=== PATIENT | female | born 2000 | race Two or more races ===

== ENCOUNTER 2020-06-14 15:46 | Emergency (ER) | payer SELFPAY ==
[~2020-06-14] VITALS: Ht 162.6 cm; Wt 54.5 kg
[2020-06-14 15:58] VITALS: BP 128/82
== END 2020-06-14 16:37 | disposition home or self-care (01) ==
LOC: ER 15:46
DX: S89.92XA Unspecified injury of left lower leg, initial encounter (principal); W22.8XXA Striking against or struck by other objects, initial encounter; Y93.89 Activity, other specified; Y92.89 Other specified places as the place of occurrence of the external cause; Y99.8 Other external cause status
CPT/HCPCS: 73590; 99283

== ENCOUNTER 2020-11-14 22:44 | Emergency (ER) | payer SELFPAY ==
[~2020-11-14] VITALS: Ht 149.9 cm; Wt 54.7 kg
--- NOTE | 2020-11-14 23:52 | PHYS DOC ---
Past History Past Medical History: Asthma Past Surgical History: No Surgical History Alcohol Use: None General Adult HPI: HPI: ".. I feel terrible.. I think I got covid.. .. I keep forgeting to get my shot... " " " I have been around other people with COVID.." Patient is a 20 year old female who presents with above hx and complaints of fever, malaise, arthralgia, myalgia, cephalgia, pharyngitis and nonproductive cough. Patient has not completed COVID vaccination. No recent travel outside the [place] area. No specific ill contacts. No history immunosuppression. Patient has not gotten flu vaccination this season. Patient did take some ibuprofen at home earlier today but still has myalgia arthralgia and cephalgia. No history of trauma. No history of nausea or vomiting or diarrhea. Patient does not normally follow with primary care. Patient does have past history of reactive airway disease and asthma. Review of Systems: Review of Systems: Constitutional: Complains of fever or chills Eyes: Denies change in visual acuity HENT: Complains of nasal congestion and sore throat Respiratory: Complains of nonproductive cough Cardiovascular: Denies chest pain or edema GI: Denies abdominal pain, nausea, vomiting, bloody stools or diarrhea : Denies dysuria Musculoskeletal: Complains of generalized myalgia, arthralgia, Integument: Denies rash Neurologic: Complains of headache,. Denies focal weakness or sensory changes Endocrine: Denies polyuria or polydipsia Lymphatic: Denies swollen glands Psychiatric: Denies depression or anxiety Family History: Family History: Noncontributory to presentation Current Medications: Current Meds: See nursing for home meds Allergies: Allergies: Allergies Coded Allergies Type Severity Reaction Last Updated Verified Penicillins Allergy Unknown 06/14/20 Yes Physical Exam: PE: Constitutional: Well developed, well nourished, moderate acute distress, non- toxic appearance. [] HENT: Normocephalic, atraumatic, bilateral external ears normal, oropharynx moist, postnasal drainage and mild erythema, no oral exudates, nose swollen turbinates clear rhinorrhea Eyes: PERRLA, EOMI, conjunctiva normal, no discharge. [] Neck: Normal range of motion, no tenderness, supple, no stridor. [] Cardiovascular: Tachycardia heart rate regular rhythm, no murmur [] Lungs & Thorax: Bilateral breath sounds equal apex with few scattered wheezes auscultation [] Abdomen: Bowel sounds normal, soft, no tenderness, no masses, no pulsatile masses. [] Skin: Warm, dry, no erythema, no rash. [] Back: No tenderness, no CVA tenderness. [] Extremities: No tenderness on palpation, the patient complains of generalized arthralgia and myalgia, no cyanosis, no clubbing, ROM intact, no edema. No cording appreciated Neurologic: Alert and oriented X 3, normal motor function, normal sensory function, no focal deficits noted. [] Psychologic: Affect anxious, judgement normal, mood at times tearful over her malaise complaints. Current Patient Data: Labs: Labs =not crossing over-significant lab strep negative flu negative Covid positive EKG: EKG: [] Radiology/Procedures: Radiology/Procedures: [] Heart Score: C/O Chest Pain: N/A Risk Factors: Risk Factors: DM, Current or recent (<one month) smoker, HTN, HLP, family history of CAD, obesity. Risk Scores: Score 0 - 3: 2.5% MACE over next 6 weeks - Discharge Home Score 4 - 6: 20.3% MACE over next 6 weeks - Admit for Clinical Observation Score 7 - 10: 72.7% MACE over next 6 weeks - Early Invasive Strategies Course & Med Decision Making: Course & Med Decision Making Pertinent Labs and Imaging studies reviewed. (See chart for details) Patient push fluids. Patient take Tylenol ibuprofen for discomfort. Patient to wear a mask and avoid contact with others. Patient follow-up primary care. Patient return if any concerns. Encourage patient get flu vaccination this year and Covid vaccination when she is over this acute illness.. Impression: 1. Viral illness 2. Positive Covid Covid testing [] Dragon Disclaimer: Dragon Disclaimer: This electronic medical record was generated, in whole or in part, using a voice recognition dictation system. Departure Departure: Referrals: PCP,NO (PCP) [facility] Disclaimer This chart was dictated in whole or in part using Voice Recognition software in a busy, high-work load, and often noisy Emergency Department environment. It may contain unintended and wholly unrecognized errors or omissions. ROBB RIZZO MD Nov 14, 2020 23:52
[2020-11-15] MEDS ORDERED: IBUPROFEN 400 MG TABLET. PO ONE (00:30)
[2020-11-15 00:36] LABS: BARBITURATES NEG (NEG); BENZODIAZEPINES NEG (NEG); CANNABINOIDS NEG (NEG); COCAINE NEG (NEG); METHADONE NEG (NEG); OPIATES NEG (NEG); PHENCYCLIDINE NEG (NEG)
[2020-11-15 00:39] LABS: AMPHETAMINE/METHAMPHETAMINE NEG (NEG)
[2020-11-15 00:44] LABS: BACTERIA,URINE 0 /HPF (0-FEW); BILIRUBIN,URINE NEG (NEG); CLARITY,URINE CLEAR; COLOR,URINE YELLOW; GLUCOSE,URINE NEG (NEG); NITRITE,URINE NEG (NEG); RBC,URINE 0 /HPF (0-2); SQUAMOUS EPITHELIAL CELL,UR MANY /LPF; UROBILINOGEN,URINE 0.2 mg/dL (0.2 mg/dL); WBC,URINE OCC /HPF (0-4)
[2020-11-15 00:55] LABS: INFLUENZA A PATIENT NEGATIVE (NEGATIVE); INFLUENZA B PATIENT NEGATIVE (NEGATIVE)
[2020-11-15] MEDS ORDERED: ACETAMINOPHEN 500 MG TABLET PO ONE (01:00)
[2020-11-15 02:36] VITALS: BP 102/60
== END 2020-11-15 02:40 | disposition home or self-care (01) ==
LOC: ER 22:44
DX: U07.1 COVID-19 (principal); B34.9 Viral infection, unspecified; J45.909 Unspecified asthma, uncomplicated; Z88.0 Allergy status to penicillin
CPT/HCPCS: 36415; 80307; 81001; 81025; 87070; 87426; 87804; 87880; 99283